=== PATIENT | female | born 1990 | race Two or more races ===

== ENCOUNTER 2018-10-25 06:24 | Emergency (ER) | payer OTHER ==
[~2018-10-25] VITALS: Ht 160 cm; Wt 59.0 kg
[~2018-10-25 06:24] MED LIST: CYCLOBENZAPRINE10 MG PO; KETO10TA2 PO; LEVAQUIN750 MG PO; ORPHENADRINE C100 MG PO
== END 2018-10-25 11:43 | disposition home or self-care (01) ==
LOC: ER 06:24
DX: R00.2 Palpitations (principal); F06.4 Anxiety disorder due to known physiological condition

== ENCOUNTER → 2019-03-28 | Outpatient (CLI) | payer OTHER | END | disposition home or self-care (01) | LOC: MAMO-SONO 03-27 13:45 → SONOGRAMA 08:49 | DX: N93.8 Other specified abnormal uterine and vaginal bleeding (principal) ==